=== PATIENT | male | born 1945 | race Caucasian/White ===

== ENCOUNTER 2016-08-20 16:46 | Inpatient (IN) | payer BC, MEDICARE ==
[~2016-08-20] VITALS: Ht 185.4 cm; Wt 88.2 kg
[2016-08-20] VITALS (11 sets, daily range): BP systolic 123–184; BP diastolic 69–103; PULSE 56–76; TEMP 97–98.3; O2SAT 95–96
[~2016-08-20 16:46] MED LIST: ASPIRIN 32325 MG/TAB PO; EFFEXOR 75M75 MG/TAB PO; EFFEXOR XR75 MG/CAP PO; FLOMAX 0.40.4 MG/CAP PO; LOPRESSOR 225 MG/TAB PO; MULTI VITAMINS1 TAB PO; NORCO 325 MG-7.1 TAB PO; ZOCOR 40MG40 MG PO
[2016-08-20] MEDS ORDERED: PRINIVIL20 MG PO (17:10)
[2016-08-20] MEDS ORDERED: COREG 6.256.25 MG/TA PO (17:12)
[2016-08-20] MEDS ORDERED: COZAAR100 MG PO (17:15)
[2016-08-20] MEDS ORDERED: CARAFATE S1 GM/10 ML PO (17:16)
[2016-08-20] MEDS ORDERED: PRIL40 PO (17:17)
[2016-08-21] VITALS (1368 sets, daily range): BP systolic 126–147; BP diastolic 67–78; PULSE 71–81; TEMP 97.2–101.2; O2SAT 88–100
[2016-08-21 06:30] LABS: ADJUSTED CALCIUM 9.3 mg/dL (8.4-10.2); ALBUMIN 3.6 gm/dL (3.5-5.0); BILIRUBIN,TOTAL 0.9 mg/dL (0.0-1.0); CREATININE, serum 0.71 mg/dL (0.66-1.25); POTASSIUM 3.7 mmol/L (3.4-5.0); TOTAL PROTEIN 6.8 gm/dL (6.4-8.2)
[2016-08-21 12:17] LABS: HEMOGLOBIN 12.9 g/dl (13.5-18.0); MEAN CELL VOLUME 87 fl (80.0-100.0); MEAN CORPUSCULAR HEMOGLOBIN 31 pg (27.0-31.0); MEAN CORPUSCULAR HGB CONC 35 g/dl (33.0-37.0); MEAN PLATELET VOLUME 12.1 fl (7.4-10.4); PLATELET COUNT 192 K/mm3 (130-400); RED BLOOD COUNT 4.22 M/mm3 (4.20-5.60); REDCELL DISTRIBUTION WIDTH-CV 12.7 % (11.5-14.5)
[2016-08-21 12:43] LABS: HEMATOCRIT 36.8 % (42.0-52.0)
[2016-08-21 12:44] LABS: ADD PATHOLOGY DIFF REVIEW NO
[2016-08-21 14:03] LABS: PH 5 (5-8); SQUAMOUS EPITHELIAL 0-2 /hpf; URINE APPEARANCE Hazy; URINE BACTERIA Rare /hpf; URINE BILIRUBIN Negative (NEGATIVE); URINE BLOOD 3+ (NEGATIVE); URINE COLOR Yellow; URINE GLUCOSE Negative (NEGATIVE); URINE KETONE Negative (NEGATIVE); URINE RBC >50 /hpf; URINE UROBILINOGEN Negative (NEGATIVE)
[2016-08-21 14:09] LABS: BAND 2 % (0-10); BASOPHIL 1 % (0-2); NEUTROPHILS 86 % (42.0-75.2); TOTAL CELLS COUNTED 100
[2016-08-21 14:13] LABS: ANISOCYTOSIS 2+; HYPOCHROMIA 1+
[2016-08-21 20:07] LABS: THYROID STIMULATING HORMONE 0.69 uIU/mL (0.465-4.680)
[2016-08-22] VITALS (188 sets, daily range): BP systolic 112–172; BP diastolic 59–93; PULSE 67–89; TEMP 98–99; O2SAT 85–98
[2016-08-22 06:03] LABS: ADD PATHOLOGY DIFF REVIEW NO
[2016-08-22 06:17] LABS: HEMATOCRIT 35.5 % (42.0-52.0); MEAN CELL VOLUME 91 fl (80.0-100.0); MEAN CORPUSCULAR HEMOGLOBIN 31 pg (27.0-31.0); MEAN CORPUSCULAR HGB CONC 34 g/dl (33.0-37.0); MEAN PLATELET VOLUME 12.1 fl (7.4-10.4); PLATELET COUNT 162 K/mm3 (130-400); RED BLOOD COUNT 3.91 M/mm3 (4.20-5.60); WHITE BLOOD COUNT 10.3 K/mm3 (4.8-10.8)
[2016-08-22 06:22] LABS: ADJUSTED CALCIUM 9.2 mg/dL (8.4-10.2); ALBUMIN 3.4 gm/dL (3.5-5.0); BAND 20 % (0-10); BILIRUBIN,TOTAL 0.7 mg/dL (0.0-1.0); CALCIUM 8.7 mg/dL (8.4-10.2); CREATININE, serum 0.81 mg/dL (0.66-1.25); EOSINOPHIL 1 % (0-4); NEUTROPHILS 56 % (42.0-75.2); PLATELET ESTIMATE NORMAL (NORMAL); POTASSIUM 3.9 mmol/L (3.4-5.0); TOTAL CELLS COUNTED 100; TOTAL PROTEIN 6.5 gm/dL (6.4-8.2)
[2016-08-23 01:56] VITALS: BP 151/78; PULSE 86; TEMP 97.5
[2016-08-23 05:22] VITALS: BP 157/92; PULSE 74; TEMP 98.5
[2016-08-23 09:01] VITALS: BP 144/80; PULSE 63; TEMP 100.1
[2016-08-23 14:32] VITALS: BP 143/80; PULSE 76; TEMP 98.6
[2016-08-23 18:25] VITALS: BP 128/71; PULSE 83; TEMP 97.9
[2016-08-23 20:52] VITALS: BP 133/78; PULSE 60; TEMP 98.1
[2016-08-24 02:00] VITALS: BP 124/67; PULSE 61; TEMP 98
[2016-08-24 06:01] VITALS: BP 149/91; PULSE 54; TEMP 98.3
[2016-08-24 07:18] LABS: ADD PATHOLOGY DIFF REVIEW NO
[2016-08-24 07:37] LABS: MEAN CELL VOLUME 88 fl (80.0-100.0); MEAN CORPUSCULAR HGB CONC 35 g/dl (33.0-37.0); MEAN PLATELET VOLUME 12.1 fl (7.4-10.4); PLATELET COUNT 149 K/mm3 (130-400); RED BLOOD COUNT 3.61 M/mm3 (4.20-5.60); REDCELL DISTRIBUTION WIDTH-CV 12.2 % (11.5-14.5); WHITE BLOOD COUNT 5.3 K/mm3 (4.8-10.8)
[2016-08-24 08:00] LABS: CALCIUM 8.6 mg/dL (8.4-10.2); CREATININE, serum 0.64 mg/dL (0.66-1.25); POTASSIUM 3.6 mmol/L (3.4-5.0)
[2016-08-24 08:48] LABS: HEMATOCRIT 31.6 % (42.0-52.0); HEMOGLOBIN 11.1 g/dl (13.5-18.0); MEAN CORPUSCULAR HEMOGLOBIN 31 pg (27.0-31.0)
[2016-08-24 10:00] VITALS: BP 157/84; PULSE 54; TEMP 98.6
[2016-08-24 12:36] LABS: BAND 7 % (0-10); EOSINOPHIL 10 % (0-4); NEUTROPHILS 51 % (42.0-75.2); TOTAL CELLS COUNTED 100
[2016-08-24 12:38] LABS: PLATELET ESTIMATE NORMAL (NORMAL)
[2016-08-24 13:32] VITALS: BP 172/81; PULSE 60; TEMP 98.6
[2016-08-24 17:27] VITALS: BP 138/73; PULSE 68; TEMP 98.3
[2016-08-24 23:05] VITALS: BP 151/76; PULSE 56; TEMP 97.5
[2016-08-25 02:28] VITALS: BP 135/61; PULSE 55; TEMP 98.4
[2016-08-25 05:46] VITALS: BP 157/81; PULSE 56; TEMP 97.5
[2016-08-25 09:29] VITALS: BP 154/90; PULSE 57; TEMP 98.4
== END 2016-08-25 15:02 | disposition home or self-care (01) | DRG 337 ==
LOC: IMCU 16:46 → SURG 16:46 → IMCU 20:33 → SURG 20:33 → IMCU 08-22 12:53 → SURG 08-25 15:02
PROVIDERS: Internal Medicine; Nurse Practitioner Family; Surgery
PROC: 0WJP4ZZ Inspection of Gastrointestinal Tract, Percutaneous Endoscopic Approach (ICD-10-PCS; 2016-08-20)
PROC: 0WQF0ZZ Repair Abdominal Wall, Open Approach (ICD-10-PCS; principal; 2016-08-20 20:00)
PROC: 0DNA0ZZ Release Jejunum, Open Approach (ICD-10-PCS; 2016-08-20 20:00)
DX: K42.9 Umbilical hernia without obstruction or gangrene (principal); Z98.84 Bariatric surgery status; Z98.0 Intestinal bypass and anastomosis status; I10 Essential (primary) hypertension; K25.9 Gastric ulcer, unspecified as acute or chronic, without hemorrhage or perforation; I48.0 Paroxysmal atrial fibrillation
CPT/HCPCS: 99223; 99231-AI; 99232-AI; A4315; A9284; C9113; J0330; J0360; J1100; J1650; J2270; J2370; J2405; J2550; J2704; J2710; J2765; J3010; J7030; J7042; J7120